=== PATIENT | female | born 1970 | race Caucasian/White ===

== ENCOUNTER 2021-07-11 13:48 | Emergency (ER) | payer MEDICAID, SELFPAY ==
[2021-07-11 13:50] VITALS: BP 177/143; PULSE 88; RESP 16; TEMP 36.6; O2SAT 97; BMI 26.6
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
[2021-07-11] MEDS: predniSONE 20 MG Tablet 40 MG PO (14:32)
[2021-07-11] MEDS: DiphenhydrAMINE 25 MG Capsule 50 MG PO (14:32)
--- NOTE | 2021-07-11 14:36 | ED.RN ---
THIS RN WENT TO MEDICATE PT WITH BENADRYL AND PREDNISONE. PT WAS INFORMED OF WHAT MEDICATION SHE WAS BEING GIVEN AND WHY PRIOR TO ADMIN. NO FURTHER QUESTIONS FROM PT. PT HANDED THE MEDICATION WITH A CUP OF WATER. PT TOOK BOTH PREDNISONE AND 1 BENADRYL IN ONE SWALLOW, THE SECOND BENADRYL STICKING TO HER HAND. PT PULLS THAT PILL OFF AND SAYS WHAT DID YOU GIVE ME?! IT WASN'T STEROIDS AND THAT WASN'T WATER. PT WAS REASSURED THAT IT WAS AND WAS EVEN SHOWN THE WRAPPERS THE PILLS CAME IN. PT STATES HER HANDS ARE SPLITTING OPEN AND WANTS TO SPEAK TO THE DOCTOR. DR. WATT INFORMED.
--- NOTE | 2021-07-11 15:33 | ED.RN ---
provider went to re-evaluate, pt no longer in ED.
== END 2021-07-11 15:20 | disposition left against medical advice (07) ==
PROVIDERS: Emergency Provider Emergency Medicine; Visit Provider Emergency Medicine
DX: T78.40XA Allergy, unspecified, initial encounter (principal); X58.XXXA Exposure to other specified factors, initial encounter; F17.210 Nicotine dependence, cigarettes, uncomplicated; Z53.29 Procedure and treatment not carried out because of patient's decision for other reasons
CPT/HCPCS: 99283